=== PATIENT | male | born 1965 | race Caucasian/White ===

== ENCOUNTER 2017-03-23 09:59 | Day surgery (SDC) | payer BC ==
[~2017-03-23 09:59] MED LIST: Lactated Ringers 1,000 ML IV SCH
[2017-03-23] MEDS ORDERED: Midazolam 1 MG/ML 2 ML SDV IVPUSH PRN (10:39)
[2017-03-23] MEDS: fentaNYL 100 MCG/2 ML SDV IVPUSH PRN ×2 (10:52→13:14)
[2017-03-23] MEDS ORDERED: Propofol 200 MG/20 ML SDV ONE (11:09)
[2017-03-23 14:27] VITALS: BP 157/88
--- NOTE | 2017-03-23 22:09 | OR ---
SURGERY DATE: 03/23/2017. REFERRING PROVIDER: Jorge Mckeon MD. PREOPERATIVE DIAGNOSES: 1. Severe upper abdominal pain he developed acutely over the past few days. 2. Significant dyspepsia. GI cocktail yesterday helped significantly for short term. 3. Chronic pain syndrome. 4. Selected peptic ulcer disease on recent CT scan of abdomen and pelvis. 5. Suspected sleep apnea. POSTOPERATIVE DIAGNOSES: 1. Moderate gastritis of stomach body. No ulcerations or masses seen. 2. Duodenal biopsy taken of 4-5 mm, questionable pustule versus small ulceration. 3. Moderate bile reflux present. 4. Small about 2 cm sliding-type hiatal hernia present. 5. Antral biopsies taken for Helicobacter pylori and path. PROCEDURE: EGD. SURGEON: Carlos A Obrien M.D. ANESTHESIA: Monitored anesthesia care. DESCRIPTION OF PROCEDURE: Jono is a 51-year-old male who was brought to the endoscope suite after discussion of risks and benefits (including but not limited to reaction to medication, bleeding, infection, aspiration, perforation). Informed consent was obtained for monitored anesthesia care and esophagogastroduodenoscopy along with possible biopsy and/or dilatation. Pre-procedure exam including oral cavity was unremarkable except for poor dentition. IV, oxygen, and monitors were placed. Patient was placed in the left lateral position and sedation was administered. A bite block was placed gently and scope lightly lubricated and passed through the bite block and over the tongue. Hypopharynx and vocal cords were visualized and unremarkable. Scope was passed through the cricopharynx and into the esophagus. The scope was then passed through the distal esophagus and the GE junction was visualized and photographed. The GE junction was remarkable for small 2 cm sliding type hiatal hernia. No significant inflammation noted. Vocal cords were visualized and unremarkable. The scope was advanced into the stomach and gastric berman was suctioned. Pylorus was identified and intubated and then the scope was advanced to the third portion of the duodenum. The second and third portions of the duodenum did reveal a small 4 to 5 mm white pustule versus small ulceration. This was biopsied using cold forceps, basically removed with two bites. No significant bleeding noted. The duodenal bulb was visualized and unremarkable. The scope was brought back into the stomach and the pylorus and the antrum revealed some minimal inflammation, but no ulcerations or bleeding. Cold biopsy x2 bites was taken from this area to check for H. pylori and sent for path. The scope was retroflexed to visualize the angularis, fundus, body, and cardia. These did reveal moderate gastritis mainly of the body of the stomach. There were at least 5 or 6 locations of [id number] erythema with pinpoint bleeding noted. This was minimal. The patient was also noted to have moderate amount of bile reflux into the stomach. The stomach was desufflated of air and then the scope was slowly withdrawn, and the esophagus was closely visualized during withdrawal all the way into the posterior pharynx. In the upper esophagus there was an area of heterotopic type mucosa. Cold biopsy x2 bites was taken of this area and sent for path. The patient tolerated the procedure well and went to recovery in stable condition. The patient was monitored until at baseline status. Findings and discharge instructions were reviewed and the patient was discharged in good condition. COMPLICATIONS: None. TOTAL TIME: 10 minutes. ESTIMATED BLOOD LOSS: About 1 mL. RECOMMENDATIONS/FOLLOW-UP: The patient will continue on his omeprazole twice daily. Given his significant symptoms, I will add sucralfate 1 g 4 times a day a.c. and at bedtime for the next 10-14 days. He will continue to hold his meloxicam and avoid any other NSAIDs. We will await results of path reports to determine need for followup. I would like to kindly thank Dr. Mckeon for this referral. DMB: 03/23/2017 12:45:57 MODL: 03/23/2017 21:12:51 /[id number]
== END 2017-03-23 14:20 | disposition home or self-care (01) ==
LOC: VM.SDS 09:59
PROVIDERS: ATTEND Family Medicine
DX: K31.89 Other diseases of stomach and duodenum (principal); K21.9 Gastro-esophageal reflux disease without esophagitis; K44.9 Diaphragmatic hernia without obstruction or gangrene; G89.4 Chronic pain syndrome; G62.9 Polyneuropathy, unspecified; R51 Headache; M54.9 Dorsalgia, unspecified; Z79.891 Long term (current) use of opiate analgesic; Z79.1 Long term (current) use of non-steroidal anti-inflammatories (NSAID); Z79.899 Other long term (current) drug therapy; Z90.49 Acquired absence of other specified parts of digestive tract; Z98.890 Other specified postprocedural states
CPT/HCPCS: 43239; J2250; J2704; J3010; J7120